=== PATIENT | female | born 1980 | race Two or more races ===

== ENCOUNTER 2021-05-03 01:56 | Emergency (ER) | payer MEDICAID ==
[~2021-05-03] VITALS: Ht 160 cm; Wt 106.8 kg
[~2021-05-03 01:56] MED LIST: HYDR-4383 PO
[2021-05-03] MEDS ORDERED: normal saline 1000ml 1,000 ML IV ONE (02:35)
[2021-05-03] MEDS ORDERED: morphine 4 MG/ML inj SYRINge IV ONE (02:35)
[2021-05-03] MEDS ORDERED: ondansetron/PF 4mg/2ml inj IV ONE (02:35)
[2021-05-03 02:36] LABS: CLARITY,URINE CLEAR (Clear); COLOR,URINE YELLOW (Yellow); GLUCOSE, URINE NEGATIVE (Neg); KETONES,URINE NEGATIVE (Neg); LEUKOCYTE ESTERASE ,URINE NEGATIVE (Neg); NITRITES, URINE NEGATIVE (Neg); OCCULT BLOOD,URINE MODERATE (Neg); PROTEIN,URINE NEGATIVE (Neg); UROBILINOGEN,URINE 0.2 E.U/dL (0.2-1.0)
[2021-05-03 02:42] LABS: UA COLLECTION TYPE CLN CATCH MIDSTREAM
[2021-05-03 02:43] LABS: BACTERIA,URINE NONE SEEN /HPF (Neg); SQUAMOUS EPITHELIAL CELL,UR FEW /LPF (FEW); WBC,URINE NONE SEEN /HPF (0-4)
[2021-05-03 03:00] LABS: URINE HCG NEGATIVE (NEG)
[2021-05-03 03:28] LABS: ALANINE AMINOTRANSFERASE 36 U/L (12-78); ALBUMIN 2.9 G/DL (3.4-5.0); ALBUMIN/GLOBULIN RATIO 0.7 (1.1-1.5); ALKALINE PHOSPHATASE 91 IU/L (46-116); ANION GAP 9 (8-16); ASPARTATE AMINO TRANSFERASE 20 U/L (10-37); BILIRUBIN,DIRECT < 0.1 MG/DL (0-0.3); BILIRUBIN,TOTAL 0.2 MG/DL (0.1-1.0); BLOOD UREA NITROGEN 16 MG/DL (7-18); BUN/CREATININE RATIO 18.6 (6.6-38.0); CALCIUM 8.2 MG/DL (8.5-10.1); CHLORIDE 105 MMOL/L (99-107); CREATININE 0.86 MG/DL (0.40-0.90); GLUCOSE 113 MG/DL (70-104); LIPASE 136 U/L (73-393); POTASSIUM 3.4 MMOL/L (3.5-5.1); SODIUM 140 MMOL/L (135-145); TOTAL CARBON DIOXIDE 26.4 MMOL/L (24-32); TOTAL PROTEIN 6.9 G/DL (6.4-8.2); eGFR 74 ML/MIN
[2021-05-03 03:30] LABS: BASOPHILS % (AUTO) 0.5 % (0-1); EOSINOPHILS # (AUTO) 0.1 X10'3 (0-0.9); EOSINOPHILS % (AUTO) 1.3 % (0-6); HEMATOCRIT 35.4 % (35.0-45.0); HEMOGLOBIN 11.7 g/dl (12.0-16.0); LYMPHOCYTES # (AUTO) 1.5 X10'3 (1.1-4.8); LYMPHOCYTES % (AUTO) 18.3 % (21-51); MEAN CORPUSCULAR HEMOGLOBIN 26.1 PG (27.0-31.0); MEAN CORPUSCULAR HGB CONC 33.1 g/dL (33.0-36.5); MEAN CORPUSCULAR VOLUME 78.9 FL (78-98); MEAN PLATELET VOLUME 8.2 FL (7.4-10.4); MONOCYTES # (AUTO) 0.7 X10'3 (0-0.9); NEUTROPHILS # (AUTO) 6.1 X10'3 (1.8-7.7); NEUTROPHILS % (AUTO) 71.9 % (42-75); PLATELET COUNT 233 X10'3 (140-440); RED BLOOD COUNT 4.48 X10'6 (4.20-5.60); RED CELL DISTRIBUTION WIDTH 15.9 % (11.5-14.5); WHITE BLOOD COUNT 8.5 X10'3 (4.5-11.0)
[2021-05-03] MEDS ORDERED: OMEP20TA5 PO (05:27)
[2021-05-03] MEDS ORDERED: SUCR1TAB PO (05:27)
[2021-05-03 05:33] VITALS: BP 126/83
== END 2021-05-03 05:35 | disposition home or self-care (01) ==
LOC: ER 01:57
DX: R10.11 Right upper quadrant pain (principal); R11.10 Vomiting, unspecified; Z90.89 Acquired absence of other organs; Z79.899 Other long term (current) drug therapy
CPT/HCPCS: 36415; 76700; 80048; 80076; 81001; 81025; 83690; 85025; 96361; 96374; 96375; 99284; J2270; J2405; J7030